=== PATIENT | female | born 1980 | race Caucasian/White ===

== ENCOUNTER 2017-02-21 12:38 | Emergency (ER) | payer OTHER ==
[~2017-02-21] VITALS: Ht 162.6 cm; Wt 56.5 kg
[2017-02-21 12:43] VITALS: Ht 162.6 cm; Wt 56.5 kg
[2017-02-21] MEDS ORDERED: HYDROmorphONE 1 MG/ML SYG IV STA (13:01)
[2017-02-21] MEDS ORDERED: DIPHENHYDRAMINE 50 MG INJ IV STA (13:01)
[2017-02-21] MEDS ORDERED: METOCLOPRAMIDE 10 MG INJ IV STA (13:01)
[2017-02-21] MEDS ORDERED: HYDR-902 PO (14:14)
[2017-02-21] MEDS ORDERED: ONDA4TAB14 PO (14:14)
--- NOTE | 2017-02-21 14:17 | ERD ---
ER Documentation Chief Complaint Date/Time DATE: 02/21/17 TIME: 14:16 Chief Complaint PT with BELLO , nausea and blurry vision X 1 hour. HPI This is a 36-year-old female who complains a few month history of headaches located in the right retro-orbital region that is throbbing with photophobia phonophobia worse with position change. She is having up to 3 headaches a week. She says that she has no fever no neck pain no neurological complaints. She says she does have an aura at the onset with flashing lights and spots in front of her eyes and the headache will begin shortly after. She does have nausea but no vomiting fever diarrhea. Pain is described as throbbing and nonradiating ROS All systems reviewed and are negative except as per history of present illness. Medications Home Meds Active Scripts Ondansetron (Ondansetron Odt) 4 Mg Tab.rapdis, 4 MG PO Q6H Y for NAUSEA AND/OR VOMITING, #15 TAB Prov:BRENDA HARRIS DO 02/21/17 Hydrocodone/Acetaminophen ([place] 10-325 Tablet) 1 Each Tablet, 1 TAB PO Q6H Y for PAIN, #20 TAB Prov:BRENDA HARRIS. DO 02/21/17 PMhx/Soc Medical and Surgical Hx: pt denies Medical Hx, pt denies Surgical Hx History of Surgery: No Anesthesia Reaction: No Hx Neurological Disorder: No Hx Respiratory Disorders: No Hx Cardiac Disorders: No Hx Psychiatric Problems: No Hx Miscellaneous Medical Probl: No Hx Alcohol Use: No Hx Substance Use: No Hx Tobacco Use: No Smoking Status: Never smoker FmHx Family History: No coronary disease Physical Exam Vitals Vital Signs Date Time Temp Pulse Resp B/P Pulse Ox O2 Delivery O2 Flow Rate FiO2 02/21/17 12:43 97.7 75 20 117/65 100 Physical Exam Const: Well-developed, well-nourished Head: Atraumatic, normocephalic Eyes: Normal Conjunctiva, PERRLA, EOMI, normal sclera, no nystagmus ENT: Normal External Ears, Nose and Mouth, moist mucus membranes. Neck: Full range of motion. No meningismus, no lymphadenopathy. Resp: Clear to auscultation bilaterally, no wheezing, rhonchi, rales Cardio: Regular rate and rhythm, no murmurs, S1 S2 present Abd: Soft, non tender x 4, non distended. Normal bowel sounds, no guarding or rebound, no pulsitile abdominal masses or bruits Skin: No petechiae or rashes, no ecchymosis , no maculopapular rash Back: No midline or flank tenderness Ext: No cyanosis, or edema, FROM x 4, normal inspection, neurovascularly intact x 4 Neur: Awake and alert, STR 5/5 x 4, sensation intact x 4, no focal findings, cerebellum intact Psych: Normal Mood and Affect Results 24 hrs Current Medications Medications (Trade) Dose Ordered Sig/Devon Route PRN Reason Start Time Stop Time Status Last Admin Dose Admin Metoclopramide HCl (Reglan) 10 mg ONCE STAT IV 02/21/17 13:01 02/21/17 13:08 DC 02/21/17 13:14 Hydromorphone HCl (Dilaudid) 1 mg ONCE STAT IV 02/21/17 13:01 02/21/17 13:08 DC 02/21/17 13:16 Diphenhydramine HCl (Benadryl) 25 mg ONCE STAT IV 02/21/17 13:01 02/21/17 13:08 DC 02/21/17 13:13 Procedures/MDM Patient received IV pain meds and she is feeling much better. Her headache is 0 out of 10. Reviewed migraine prevention care Departure Diagnosis: Primary Impression: Migraine Migraine type: with aura Status migrainosus presence: without status migrainosus Intractability: not intractable Qualified Code: G43.109 - Migraine with aura and without status migrainosus, not intractable Condition: Stable Patient Instructions: Headache, Migraine (Classical) BRENDA HARRIS DO Feb 21, 2017 14:17
== END 2017-02-21 14:31 | disposition home or self-care (01) ==
LOC: FTE 12:38
DX: G43.109 Migraine with aura, not intractable, without status migrainosus (principal); R11.0 Nausea
CPT/HCPCS: 96374; 96375; J1170; J1200; J2765; Z7502

== ENCOUNTER 2017-06-29 09:38 | Emergency (ER) | payer OTHER ==
[~2017-06-29] VITALS: Wt 65.9 kg
[~2017-06-29 09:38] MED LIST: HYDR-902 PO; ONDA4TAB14 PO
--- NOTE | 2017-06-29 12:03 | ERD ---
ER Documentation Chief Complaint Chief Complaint cough, oakes, bodyaches, n/v, fever HPI 37-year-old female presents with a 6 day history of headaches, body aches, cough , nausea, vomiting. Patient's fever has been tactile, last time she took ibuprofen was last night. She reports cough with congestion, rhinorrhea, upper back pain. She has diffuse muscle aches. She denies any vomiting or diarrhea the last 48 hours. She denies recent travel. She denies chest pain or shortness of breath. ROS All systems reviewed and are negative except as per history of present illness. Medications Home Meds Active Scripts Cephalexin* (Keflex*) 500 Mg Capsule, 500 MG PO TID for 10 Days, CAP Prov:YOVANNY QUEVEDO PA-C 06/29/17 Azithromycin* (Zithromax*) 250 Mg Tablet, 250 MG PO .ZPACK DIRECTED, #6 TAB TAKE 500 MG (2 TABS) THE FIRST DAY THEN 250 MG (1 TAB) DAYS 2-5 Prov:YOVANNY QUEVEDO PA-C 06/29/17 Ondansetron (Ondansetron Odt) 4 Mg Tab.rapdis, 4 MG PO Q6H Y for NAUSEA AND/OR VOMITING, #15 TAB Prov:JESSICA HARRISSTELISEOS A. DO 02/21/17 Hydrocodone/Acetaminophen ([place] 10-325 Tablet) 1 Each Tablet, 1 TAB PO Q6H Y for PAIN, #20 TAB Prov:LESHAMAOS,APOSTOLOS A. DO 02/21/17 PMhx/Soc Medical and Surgical Hx: pt denies Medical Hx, pt denies Surgical Hx History of Surgery: No Anesthesia Reaction: No Hx Neurological Disorder: No Hx Respiratory Disorders: No Hx Cardiac Disorders: No Hx Psychiatric Problems: No Hx Miscellaneous Medical Probl: No Hx Alcohol Use: No Hx Substance Use: No Hx Tobacco Use: No Smoking Status: Never smoker Physical Exam Vitals Vital Signs Date Time Temp Pulse Resp B/P Pulse Ox O2 Delivery O2 Flow Rate FiO2 06/29/17 09:41 99.0 99 20 111/60 97 Physical Exam General: Well-developed, well-nourished. The patient appears in no acute distress. HEENT: Head is normocephalic, atraumatic. No scleral icterus. Pupils are equal , round, and reactive. Oral mucous membranes are moist. No pharyngeal erythema. Neck: Supple. Nontender. Lungs: Clear to auscultation. Normal air movement. Heart: Regular rate and rhythm. S1 and S2 are normal. No murmurs, gallops, or rubs. Abdomen: Soft, nontender, nondistended. Bowel sounds are normoactive. Extremities: No clubbing or cyanosis. Normal pulses. Moving extremities x 4. No weakness. Neurologic: Alert and oriented 3. No focal deficits. Skin: Normal turgor. No rash or lesions. Results 24 hrs Laboratory Tests Test 06/29/17 12:00 Urine Color SUNNY Urine Clarity CLOUDY Urine pH 5.0 Urine Specific [place] 1.027 Urine Ketones 1+mg/dL Urine Nitrite NEGATIVEmg/dL Urine Bilirubin NEGATIVEmg/dL Urine Urobilinogen NEGATIVEmg/dL Urine Leukocyte Esterase 3+Koby/ul Urine Microscopic RBC 14/HPF Urine Microscopic WBC 112/HPF Urine Squamous Epithelial Cells MODERATE/HPF Urine Bacteria FEW/HPF Urine Mucus MANY/HPF Urine Hemoglobin 2+mg/dL Urine Glucose NEGATIVEmg/dL Urine Total Protein 2+mg/dl Urine Test NEGATIVE Current Medications Medications (Trade) Dose Ordered Sig/Devon Route PRN Reason Start Time Stop Time Status Last Admin Dose Admin Ceftriaxone Sodium (Rocephin) 1 gm ONCE ONCE IM 06/29/17 13:00 06/29/17 13:01 DC Lidocaine (Xylocaine 1% (Mdv) 20 ml) 2 ml ONCE ONCE IM 06/29/17 13:00 06/29/17 13:01 DC Radiology Main Line: [phone] DIAGNOSTIC IMAGING REPORT Patient: JOANN AVILES : 1980 Age: 37 Sex: F [id number] DOS: 06/29/17 1150 Ordering MD: YOVANNY QUEVEDO PA-C Location: [facility] Room/Bed: PROCEDURE: Chest x-ray CLINICAL INDICATION: Cough TECHNIQUE: Chest single view COMPARISON: None FINDINGS: The heart is normal in size. The pulmonary vessels are normal in caliber. There is a large ground-glass opacity in the right mid lung field likely representing pneumonia. Follow-up to resolution is recommended. Left lung is clear. Costophrenic angles are sharp. Bony thorax is unremarkable. IMPRESSION: 1. Large ground-glass density in the right mid lung field which likely represents pneumonia. Continued follow-up to resolution is recommended RPTAT: HH .Mike Donato MD, MD Date Time Electronically viewed and signed by .Mike Donato MD, on 06/29/2017 12:14 .W/ CC: YOVANNY QUEVEDO PA-C Procedures/MDM 37-year-old female comes in with fever, headache, cough, nausea vomiting for 6 days, patient has pneumonia and a UTI. Chest x-ray shows right-sided pneumonia , and urinalysis shows that over blood cells with moderate leukocyte esterase. Patient vital signs are normal, she is afebrile, tachycardia, I doubt sepsis. She is well-appearing, and is ready to be discharged home. Positive x-ray and a urinalysis and her doctor, she was also advised to speak with him for repeat chest x-ray. Departure Diagnosis: Primary Impression: Pneumonia Additional Impression: UTI (urinary tract infection) Condition: Good YOVANNY QUEVEDO PA-C Jun 29, 2017 12:03
--- NOTE | 2017-06-29 12:14 | RADRPT ---
PROCEDURE: Chest x-ray CLINICAL INDICATION: Cough TECHNIQUE: Chest single view COMPARISON: None FINDINGS: The heart is normal in size. The pulmonary vessels are normal in caliber. There is a large ground-g lass opacity in the right mid lung field likely representing pneumonia. Follow-up to resolution is r ecommended. Left lung is clear. Costophrenic angles are sharp. Bony thorax is unremarkable. IMPRESSION: 1. Large ground-glass density in the right mid lung field which likely represents pneumonia. Contin ued follow-up to resolution is recommended RPTAT: HH .Mike Donato MD, Date Time Electronically viewed and signed by .Mike Donato MD, on 06/29/2017 12:14 .W/
[2017-06-29 12:49] LABS: ADD UMIC YES; UR ASCORBIC ACID 40 mg/dL (NEGATIVE); UR BACTERIA FEW /HPF (NONE SEEN); UR BILIRUBIN (Dip) NEGATIVE (NEGATIVE); UR BLOOD (Dip) 2+ mg/dL (NEGATIVE); UR CLARITY CLOUDY (CLEAR); UR COLOR AMBER (YELLOW); UR GLUCOSE (Dip) NEGATIVE (NEGATIVE); UR KETONES (Dip) 1+ mg/dL (NEGATIVE); UR LEUKOCYTE ESTERASE (Dip) 3+ Leu/ul (NEGATIVE); UR MUCUS MANY /HPF (NONE SEEN); UR NITRITE (Dip) NEGATIVE (NEGATIVE); UR RBC 14 /HPF (0-5); UR SPECIFIC GRAVITY (Dip) 1.027 (1.003-1.030); UR SQUAMOUS EPITHELIAL CELL MODERATE /HPF (FEW); UR TOTAL PROTEIN (Dip) 2+ mg/dl (NEGATIVE); UR UROBILINOGEN (Dip) NEGATIVE (NEGATIVE)
[2017-06-29] MEDS ORDERED: CEFTRIAXONE 1 GM INJ IM ONE (13:00)
[2017-06-29] MEDS ORDERED: LIDOCAINE 1% (MDV) 20 ML INJ IM ONE (13:00)
[2017-06-29] MEDS ORDERED: AZIT250T94 PO (13:04)
[2017-06-29] MEDS ORDERED: CEPH-443 PO (13:04)
[2017-06-29 14:01] VITALS: BP 128/74; PULSE 87; RESP 18; TEMP 98.3
== END 2017-06-29 14:00 | disposition home or self-care (01) ==
LOC: FTE 09:38
DX: J18.9 Pneumonia, unspecified organism (principal); N39.0 Urinary tract infection, site not specified
CPT/HCPCS: 71010; 81001; 84703; 96372; J0696; Z7502; Z7610

== ENCOUNTER 2017-07-13 10:17 | Inpatient (IN) | END 2017-07-17 13:07 | disposition home or self-care (01) | DRG 871 ==

== ENCOUNTER 2017-07-21 05:10 | Emergency (ER) | payer OTHER ==
[~2017-07-21] VITALS: Ht 170.2 cm; Wt 56.6 kg
[~2017-07-21 05:10] MED LIST changes: +AMOX1TAB10 PO; +HYDR-3498 PO; -HYDR-902 PO; -ONDA4TAB14 PO; +PROM25TA14 PO; +Saccharomyces Boulardii PO; +UDROBDM PO
[2017-07-21 05:34] VITALS: Ht 170.2 cm; Wt 56.6 kg
[2017-07-21] MEDS ORDERED: KETOROLAC 30 MG INJ IV STA (06:37)
[2017-07-21 07:39] LABS: ANION GAP 13 (8-16); BLOOD UREA NITROGEN 13 mg/dl (7-20); CALCIUM 9.5 mg/dl (8.4-10.2); CARBON DIOXIDE 26 mmol/L (21-31); CHLORIDE 105 mmol/L (97-110); CREATININE 0.66 mg/dl (0.44-1.00); GLUCOSE 104 mg/dl (70-220); POTASSIUM 3.8 mmol/L (3.5-5.1); SODIUM 140 mmol/L (135-144)
[2017-07-21 07:51] LABS: BASOPHIL # 0.1 10^3/ul (0.0-0.1); BASOPHILS % 0.5 % (0.0-2.0); EOSINOPHILS # 0.1 10^3/ul (0.0-0.5); EOSINOPHILS % 1.1 % (0.0-7.0); HEMATOCRIT 38.6 % (37.0-47.0); HEMOGLOBIN 13.3 g/dl (12.0-16.0); LYMPHOCYTES # 2.5 10^3/ul (0.8-2.9); LYMPHOCYTES % 21.6 % (15.0-51.0); MEAN CORPUSCULAR HEMOGLOBIN 29.7 pg (29.0-33.0); MEAN CORPUSCULAR HGB CONC 34.5 g/dl (32.0-37.0); MEAN CORPUSCULAR VOLUME 86.2 fl (82.0-101.0); MEAN PLATELET VOLUME 9.3 fl (7.4-10.4); MONOCYTE # 0.8 10^3/ul (0.3-0.9); MONOCYTES % 6.5 % (0.0-11.0); NEUTROPHIL # 8.1 10^3/ul (1.6-7.5); NEUTROPHILS % 69.5 % (39.0-77.0); PLATELET COUNT 459 10^3/UL (140-415); RED BLOOD COUNT 4.48 10^6/ul (4.20-5.40); RED CELL DISTRIBUTION WIDTH 12.5 % (11.5-14.5); TROPONIN-I < 0.012 ng/ml (0.00-0.12); WHITE BLOOD COUNT 11.7 10^3/ul (4.8-10.8)
--- NOTE | 2017-07-21 08:08 | RADRPT ---
PROCEDURE: XR Chest. CLINICAL INDICATION: chest pain TECHNIQUE: Single frontal view of the chest was obtained COMPARISON: 07/13/2017, 07/16/2017 FINDINGS: The heart and mediastinum are within normal limits. The lungs are clear. There is no pleural effusion or pneumothorax. RPTAT: AA IMPRESSION: No acute disease. .Randall Downing MD, MD Date Time Electronically viewed and signed by .Randall Downing MD, on 07/21/2017 08:07 .S/
[2017-07-21] MEDS ORDERED: morphine 2 MG INJ IV STA (08:26)
[2017-07-21] MEDS ORDERED: HYDR-906 PO (08:31)
--- NOTE | 2017-07-21 08:31 | ERD ---
ER Documentation Chief Complaint Chief Complaint Rt chest pain radiating back, recently admitted for PNA, no relieve w/med HPI This is a 37-year-old female who presents to the emergency room for evaluation of right-sided chest pain. The patient states that she has chest pain which is worse with coughing and deep inspiration. She localizes the pain to the side of her right chest and states that it is a sharp pain with no radiation. She states that she was recently diagnosed with pneumonia on the right side. She states that she has finished her course of antibiotics, denies any fevers or chills and states that this pain started after she had severe coughing. ROS All systems reviewed and are negative except as per history of present illness. Medications Home Meds Active Scripts Hydrocodone Bit-Acetaminophen (Hydrocodone Bit-APAP) 5-325MG Tablet, 1 TAB PO Q4 Y for breakthrough pain, #20 TAB Prov:EMILIA CORONADO 07/17/17 Amoxicillin/Potassium Clav (Amox-Clav 875-125 mg Tablet) 875-125 mg Tab, 1 TAB PO BID, #8 TAB Prov:EMILIA CORONADO 07/17/17 [Saccharomyces Boulardii] 250 MG CAP No Conflict Check, 500 MG PO BID, #30 Prov:EMILIA CORONADO 07/17/17 Guaifenesin-Dextromethorphan* (Robitussin* DM) 100MG/10MG/5ML Syrup, 10 ML PO Q4H Y for cough, #6 OZ Prov:EMILIA CORONADO 07/17/17 Reported Medications Promethazine Hcl* (Phenergan*) 25 Mg Tablet, 25 MG PO Q6H Y for NAUSEA AND/OR VOMITING, TAB 07/13/17 Discontinued Reported Medications Prednisone* (Prednisone*) 10 Mg Tab, 10 MG PO DAILY, TAB 07/13/17 Guaifenesin (Mucinex) 1,200 Mg Tab.er.12h, 1200 MG PO BID, TAB 07/13/17 Allergies Allergies: Coded Allergies: No Known Allergy (Unverified , 07/21/17) PMhx/Soc History of Surgery: Yes (Appendectomy age 17) Anesthesia Reaction: No Hx Neurological Disorder: No Hx Respiratory Disorders: No Hx Cardiac Disorders: No Hx Psychiatric Problems: No Hx Miscellaneous Medical Probl: No Hx Alcohol Use: No Hx Substance Use: No Hx Tobacco Use: No Smoking Status: Never smoker Physical Exam Vitals Vital Signs Date Time Temp Pulse Resp B/P Pulse Ox O2 Delivery O2 Flow Rate FiO2 07/21/17 05:34 98.0 75 18 111/68 96 Physical Exam INITIAL VITAL SIGNS: Reviewed by me GENERAL: The patient is well developed and appropriate for usual state of health in no apparent distress HEENT: Pupils equal, round, and reactive to light. EOMI. There is no scleral icterus. NECK: C-spine is soft and supple, there is no meningismus. There is no cervical lymphadenopathy. LUNGS: Clear to auscultation bilaterally. There are no rales, wheezes or rhonchi. HEART: Regular rate and rhythm, no murmurs, clicks, rubs or gallops. ABDOMEN: Soft, non-tender, non-distended. There are bowel sounds in all four quadrants. No rebound or guarding. EXTREMITIES: There is no peripheral cyanosis or edema. No focal swelling or erythema. NEUROLOGICAL: The patient moves all four extremities with 5/5 strength. Cranial nerves II - XII are intact. Normal gait. Alert and oriented SKIN: There is no apparent rash or petechiae. Muscular skeletal: Tenderness to palpation over the right anterior chest wall, right lateral wall, no paradoxical chest wall movement HEME/LYMPHATIC: There is no evidence of excessive bruising or lymphedema. PSYCHIATRIC: The patient does not appear anxious or depressed. Result Diagram: 07/21/17 0650 07/21/17 0650 Results 24 hrs Laboratory Tests Test 07/21/17 06:50 White Blood Count 11.710^3/ul Red Blood Count 4.4810^6/ul Hemoglobin 13.3g/dl Hematocrit 38.6% Mean Corpuscular Volume 86.2fl Mean Corpuscular Hemoglobin 29.7pg Mean Corpuscular Hemoglobin Concent 34.5g/dl Red Cell Distribution Width 12.5% Platelet Count 72912^3/UL Mean Platelet Volume 9.3fl Neutrophils % 69.5% Lymphocytes % 21.6% Monocytes % 6.5% Eosinophils % 1.1% Basophils % 0.5% Nucleated Red Blood Cells % 0.0/100WBC Neutrophils # 8.110^3/ul Lymphocytes # 2.510^3/ul Monocytes # 0.810^3/ul Eosinophils # 0.110^3/ul Basophils # 0.110^3/ul Nucleated Red Blood Cells # 0.010^3/ul Sodium Level 140mmol/L Potassium Level 3.8mmol/L Chloride Level 105mmol/L Carbon Dioxide Level 26mmol/L Anion Gap 13 Blood Urea Nitrogen 13mg/dl Creatinine 0.66mg/dl Glucose Level 104mg/dl Calcium Level 9.5mg/dl Troponin I < 0.012ng/ml Current Medications Medications (Trade) Dose Ordered Sig/Devon Route PRN Reason Start Time Stop Time Status Last Admin Dose Admin Ketorolac Tromethamine (Toradol) 30 mg ONCE STAT IV 07/21/17 06:37 07/21/17 06:38 DC 07/21/17 07:30 Procedures/MDM EKG: Rate/Rhythm: [Normal Sinus Rhythm] QRS, ST, T-waves: [No changes consistent w/ acute ischemia] Impression: [No evidence of ischemia or arrhythmia] Chest X-ray 1V Interpreted by me: Soft Tissue: No acute abnormalities Bones: No acute abnormalities Mediastinum/Cardiac Silhouette/Lungs: [No acute abnormalities] This 37-year-old female presents to the ER for evaluation of right-sided chest pain. The patient was recently diagnosed with pneumonia on the right side. On evaluation the patient was afebrile, not hypoxic, and hemodynamically stable. She did have tenderness to palpation over the right portion of her chest which is reproducible with palpation. The patient likely suffering from a muscle strain secondary to coughing episode. The patient was evaluated by myself and an EKG was nonischemic. Her chest x-ray does not reveal any signs of acute infiltrate. She has no signs of pneumothorax. Lab work was obtained which is within normal limits. This patient likely suffering from a chest wall strain secondary to her previous coughing episodes. The patient was given Toradol and morphine in the emergency room. This patient was also given an incentive spirometer with instructions and will be discharged home with a prescription for [place] for breakthrough pain. Was advised she can return to the emergency room at any time if her symptoms worsen, she verbalized understanding and is comfortable with the plan of care for discharge at this time. Her vitals are stable Departure Diagnosis: Primary Impression: Chest wall pain DANILO CID DO Jul 21, 2017 08:30
[2017-07-21 08:40] VITALS: BP 90/61; PULSE 78; RESP 18; TEMP 98
== END 2017-07-21 08:50 | disposition home or self-care (01) ==
LOC: E/R 05:10
DX: R07.89 Other chest pain (principal)
CPT/HCPCS: 36415; 71010; 80048; 84484; 85025; 93005; 96374; 96375; J1885; J2270; Z7502